=== PATIENT | female | born 1940 | race Caucasian/White ===

== ENCOUNTER 2020-03-29 20:22 | Emergency (ER) | payer OTHER, MEDICAID, SELFPAY ==
[~2020-03-29] VITALS: Ht 157.5 cm; Wt 63.5 kg
[2020-03-29 21:19] VITALS: BP_SYST 131
--- NOTE | 2020-03-29 23:56 | NUR ---
Patient given written and verbal discharge instructions and verbalizes understanding. ER MD discussed with patient the results and treatment provided. Patient in stable condition. ID arm band removed. Patient educated on pain management and to follow up with PMD. Opportunity for questions provided and answered. Medication side effect fact sheet provided.
[2020-03-30 00:01] VITALS: BP_SYST 131
== END 2020-03-30 00:01 | disposition home or self-care (01) ==
LOC: SED 20:22
DX: U07.1 COVID-19 (principal)
CPT/HCPCS: 36415; 71045; 99284